=== PATIENT | male | born 1970 | race African-American/Black ===

== ENCOUNTER 2016-12-22 22:08 | Emergency (ER) | payer SELFPAY ==
[2016-12-22 22:24] VITALS: BP 160/109; PULSE 79; TEMP 98.6; BMI 26.4
[2016-12-23] MEDS ORDERED: SULFAMETHOXAZOLE/TRIMETHOPRIM 800MG/160MG D.S. TABLET PO ONE (00:36)
[2016-12-23] MEDS ORDERED: IBUPROFEN 400 MG TABLET (FP) PO ONE ×2 (00:36→00:51)
--- NOTE | 2016-12-23 00:36 | PDOC ---
History of Present Illness - General History Source: Patient Exam Limitations: No Limitations - History of Present Illness Initial Comments: 12/23/16 00:40 The patient is a 46 year old male with significant past medical history of hypertension who presents to the ED for 2 weeks of cough. Patient reports his cough is sometimes productive with yellow sputum. He also reports he endorses chest pain when he coughs. Denies lightheadedness, diaphoresis, SOB, jaw pain, shoulder pain, arm pain, leg swelling, nausea, or vomiting. States he is a former smoker and quit 2 weeks ago. The patient denies fever, chills, abdominal pain, and diarrhea. Allergies: NKDA Social History: Former smoker (quit 2 weeks ago). No alcohol or drug use reported. Past Surgical History: catheterization PCP: n/a <Lorelei Jansen - Last Filed: 12/23/16 00:40> - General History Source: Patient <Daron Rosado - Last Filed: 12/23/16 01:39> - General Chief Complaint: Pain Stated Complaint: CHEST PAIN Time Seen by Provider: 12/23/16 00:31 Past History <Lorelei Jansen - Last Filed: 12/23/16 00:40> - Past Medical History HTN: Yes - Surgical History Cardiac Surgery: Yes (Catheterization w/balloon) - Psycho/Social/Smoking Cessation Hx Suicidal Ideation: No Smoking History: Never smoked Have you smoked in the past 12 months: No Information on smoking cessation initiated: No Hx Alcohol Use: No Drug/Substance Use Hx: No Substance Use Type: None <Daron Rosado - Last Filed: 12/23/16 01:39> - Past Medical History Allergies/Adverse Reactions: Allergies Allergy/AdvReac Type Severity Reaction Status Date / Time No Known Allergies Allergy Verified 12/22/16 22:21 Home Medications: Ambulatory Orders Ibuprofen 800 mg PO TID #30 tablet 12/23/16 Promethazine/Phenyleph/Codeine [Phenergan VC+Codeine Syrup] 5 ml PO TID #30 ml MDD 4 12/23/16 Sulfamethoxazole/Trimethoprim [Bactrim *Ds*] 1 tab PO BID #20 tablet 12/23/16 Review of Systems - Review of Systems Able to Perform ROS?: Yes Comments:: 12/23/16 00:41 CONSTITUTIONAL: Absent: fever, no chills, no fatigue EYES: Absent: visual changes ENT: Absent: ear pain, no sore throat CARDIOVASCULAR: +chest pain Absent: no palpitations RESPIRATORY: +cough Absent: no SOB GI: Absent: abdominal pain, no nausea, no vomiting, no constipation, no diarrhea GENITOURINARY: Absent: dysuria, no frequency, no hematuria MUSCULOSKELETAL: Absent: back pain, no arthralgia, no myalgia SKIN: Absent: rash NEURO: Absent: headache <Lorelei Jansen - Last Filed: 12/23/16 00:40> *Physical Exam - Vital Signs Last Vital Signs Temp Pulse Resp BP Pulse Ox 98.6 F 79 20 160/109 97 12/22/16 22:22 12/22/16 22:22 12/22/16 22:22 12/22/16 22:22 12/22/16 22:22 - Physical Exam Comments: 12/23/16 00:41 GENERAL: Well-appearing, well-nourished. No apparent distress. HEENT: Normocephalic, atraumatic. PERRL, EOM intact. CARDIOVASCULAR: Normal S1, S2. Regular rate and rhythm. PULMONARY: No evidence of respiratory distress. Lungs clear to auscultation bilaterally. No wheezing, rales or rhonchi. No conversational dyspnea. No retractions. ABDOMEN: Soft, non-distended, non-tender. EXTREMITIES: Normal ROM in all four extremities. No gross deformities. SKIN: Warm, dry. No rash NEUROLOGICAL: No focal neurological deficits. <Lorelei Jansen - Last Filed: 12/23/16 00:40> - Vital Signs Last Vital Signs Temp Pulse Resp BP Pulse Ox 98.6 F 79 20 160/109 97 12/22/16 22:22 12/22/16 22:22 12/22/16 22:22 12/22/16 22:22 12/22/16 22:22 <Daron Rosado - Last Filed: 12/23/16 01:39> Medical Decision Making - Medical Decision Making 12/23/16 00:49 Dr. Rosado: The scribe's documentation has been prepared under my direction and personally reviewed by me in its entirery. I confirm that the note above accurately reflects all work, treatment, procedures, and medical decision making performed by me. <Daron Rosado - Last Filed: 12/23/16 01:39> *DC/Admit/Observation/Transfer - Attestations Scribe Attestion: 12/23/16 00:41 Documentation prepared by Lorelei Jansen, acting as medical surgical tech for Daron Rosado DO. <Lorelei Jansen - Last Filed: 12/23/16 00:40> - Discharge Dispostion Admit: No <Daron Rosado - Last Filed: 12/23/16 01:39> Diagnosis at time of Disposition: Bronchitis - Discharge Dispostion Disposition: HOME Condition at time of disposition: Stable - Prescriptions Prescriptions: Sulfamethoxazole/Trimethoprim [Bactrim *Ds*] 1 tab PO BID #20 tablet Ibuprofen 800 mg PO TID #30 tablet Promethazine/Phenyleph/Codeine [Phenergan VC+Codeine Syrup] 5 ml PO TID #30 ml MDD 4 - Patient Instructions Printed Discharge Instructions: DI for Acute Bronchitis
[2016-12-23] MEDS ORDERED: SULFAMETHOXAZOLE/TRIMETHOPRIM 800MG/160MG D.S. TABLET ONE (00:51)
--- NOTE | 2016-12-23 16:19 | EKG ---
Test Reason : Blood Pressure : / mmHG Vent. Rate : 070 BPM Atrial Rate : 070 BPM P-R Int : 138 ms QRS Dur : 086 ms QT Int : 428 ms P-R-T Axes : 015 052 224 degrees QTc Int : 462 ms POOR DATA QUALITY, INTERPRETATION MAY BE ADVERSELY AFFECTED NORMAL SINUS RHYTHM LEFT VENTRICULAR HYPERTROPHY WITH REPOLARIZATION ABNORMALITY ABNORMAL ECG NO PREVIOUS ECGS AVAILABLE Confirmed by JUN ZUÑIGA, JACQUIE ([id number]) on 12/23/2016 4:18:59 PM Referred By: Confirmed By:JACQUIE BARAHONA MD
== END 2016-12-23 01:08 | disposition home or self-care (01) ==
LOC: JER 22:08
DX: J40 Bronchitis, not specified as acute or chronic (principal); I25.10 Atherosclerotic heart disease of native coronary artery without angina pectoris; I10 Essential (primary) hypertension; Z95.5 Presence of coronary angioplasty implant and graft
CPT/HCPCS: 93005; 93010; 99282-25

== ENCOUNTER 2017-05-05 23:03 | Emergency (ER) | payer SELFPAY ==
[2017-05-05 23:25] VITALS: PULSE 97; TEMP 99.3; BMI 27.7
--- NOTE | 2017-05-06 00:39 | PDOC ---
Attending Attestation - HPI HPI: 05/06/17 01:20 46 yo M with history of hypertension, s/p stent, cigarette smoking, complaining of 3 days of sore throat, nonproductive cough, and headache. No chest pain or shortness of breath. - Physicial Exam PE: 05/06/17 01:21 Constitutional: Awake, alert, oriented. No acute distress. Head: Normocephalic. Atraumatic Eyes: PERRL. EOMI. Conjunctivae are not pale. ENT: Mucous membranes are moist and intact. Posterior pharynx without exudates or erythema. Uvula midline. Neck: Supple. Full ROM. No lymphadenopathy. Cardiovascular: Regular rate. Regular rhythm. S1, S2 regular. Distal pulses are 2+ and symmetric. Pulmonary/Chest: No evidence of respiratory distress. Clear to auscultation bilaterally No wheezing, rales or rhonchi. Abdominal: Soft and non-distended. There is no tenderness. No rebound, guarding or rigidity. No organomegaly. No palpable masses. Good bowel sounds. Back: No CVA tenderness. Musculoskeletal: No edema. No cyanosis. No clubbing. Full range of motion in all extremities. Nocalf tenderness. Radial/pedal pulses are intact and 2+ bilaterally Skin: Skin is warm and dry. No petechiae. No purpura. Neurological: Alert and oriented to person, place, and time. Cranial nerves II -XII are grossly intact. Normal speech. Strength is grossly symmetric. No sensory deficits. Psychiatric: Good eye contact. Normal interaction, affect and behavior. - Medical Decision Making 05/06/17 01:23 Documentation prepared by Gillian Box, acting as medical cash poster for Daron Rosado MD. <Gillian Box - Last Filed: 05/06/17 01:20> - Resident Resident Name: Ivan Samuel - ED Attending Attestation I have performed the following: I have examined & evaluated the patient, The case was reviewed & discussed with the resident, I agree w/resident's findings & plan, Exceptions are as noted - Medical Decision Making 05/06/17 01:23 Pt treated and released. Medication for HTN sent to pharmacy <Daron Rosado - Last Filed: 05/06/17 01:24>
--- NOTE | 2017-05-06 01:05 | PDOC ---
History of Present Illness - General Chief Complaint: Sore Throat Stated Complaint: PAIN/hypertension run out of meds 3 weeks ago Time Seen by Provider: 05/05/17 23:53 History Source: Patient Exam Limitations: No Limitations - History of Present Illness Initial Comments: 05/06/17 00:58 46M with pmh of balloon stent 3 years ago and untreated htn presents with sore throat for the past 3 days. Some cough and headaches. No runny nose, congestion, chest pain, sob, rash. Patient states hes not very involved in his health, lack of interest but tries to do better. Stopped smoking cigars 3 days ago. denies drug use. 05/06/17 01:06 Past History - Past Medical History Allergies/Adverse Reactions: Allergies Allergy/AdvReac Type Severity Reaction Status Date / Time No Known Allergies Allergy Verified 05/05/17 23:16 Home Medications: Ambulatory Orders Diltiazem HCl [Diltiazem 24Hr ER] 180 mg PO DAILY 30 Days #30 cap.er.24h Lisinopril [Prinivil] 10 mg PO DAILY #30 tablet 05/06/17 COPD: No HTN: Yes (non compliant) - Surgical History Cardiac Surgery: Yes (Catheterization w/balloon) - Suicide/Smoking/Psychosocial Hx Smoking History: Former smoker Have you smoked in the past 12 months: Yes If you are a former smoker, when did you quit?: 05/02/17 Information on smoking cessation initiated: No Hx Alcohol Use: No Drug/Substance Use Hx: No Substance Use Type: None Review of Systems - Review of Systems Able to Perform ROS?: Yes Is the patient limited Croatian proficient: No Constitutional: No: Symptoms Reported HEENTM: Yes: See HPI Respiratory: Yes: See HPI Cardiac (ROS): No: Symptoms Reported ABD/GI: No: Symptoms Reported : No: Symptoms Reported Musculoskeletal: No: Symptoms Reported Integumentary: No: Symptoms Reported Neurological: No: Symptoms reported All Other Systems: Reviewed and Negative *Physical Exam - Vital Signs Last Vital Signs Temp Pulse Resp BP Pulse Ox 99.3 F 97 H 16 165/115 100 05/05/17 23:16 05/05/17 23:16 05/05/17 23:16 05/05/17 23:16 05/05/17 23:16 - Physical Exam General Appearance: Yes: Nourished, Appropriately Dressed. No: Apparent Distress HEENT: positive: EOMI, ELIZABETH, Pharyngeal Erythema, Tonsillar Erythema. negative : Muffled/Hoarse voice, Tonsillar Exudate, Rhinorrhea, Sinus Tenderness Neck: positive: Lymphadenopathy (R), Lymphadenopathy (L). negative: Tender Respiratory/Chest: positive: Lungs Clear, Normal Breath Sounds. negative: Chest Tender, Respiratory Distress Cardiovascular: positive: Regular Rhythm, Regular Rate, S1, S2 Gastrointestinal/Abdominal: positive: Normal Bowel Sounds, Flat, Soft. negative : Tender Musculoskeletal: positive: Normal Inspection. negative: CVA Tenderness Extremity: positive: Normal Capillary Refill, Normal Inspection, Normal Range of Motion Integumentary: positive: Normal Color, Dry, Warm Neurologic: positive: Fully Oriented, Alert, Normal Mood/Affect, Normal Response Medical Decision Making - Medical Decision Making 05/06/17 01:07 46 with HTN and sore throat. Will send for rapid strep. Wrote Rx for Diltiazem and Lisinopril. 05/06/17 01:17 Rapid strep negative Ok to discharge *DC/Admit/Observation/Transfer Diagnosis at time of Disposition: Acute viral pharyngitis - Discharge Dispostion Disposition: HOME Condition at time of disposition: Stable Admit: No - Prescriptions Prescriptions: Diltiazem HCl [Diltiazem 24Hr ER] 180 mg PO DAILY 30 Days #30 cap.er.24h Lisinopril [Prinivil] 10 mg PO DAILY #30 tablet - Referrals Referrals: Carlin Langston MD [Staff Physician] - Mihai Box MD [Staff Physician] - - Patient Instructions Printed Discharge Instructions: Viral Pharyngitis, Treatments for High Blood Pressure: More Than Just Taking a Pill, Recommendations to Help Prevent High Blood Pressure, High Blood Pressure - Post Discharge Activity
[2017-05-06] MEDS ORDERED: LISINOPRIL 10 MG TABLET (FP) PO ONE (01:46)
[2017-05-06] MEDS ORDERED: LISINOPRIL 20 MG TABLET (FP) ONE (01:54)
[2017-05-06] MEDS ORDERED: DEXAMETHASONE LIQUID 0.5 MG/5 ML 240 ML BULK BOTTLE PO ONE (01:54)
[2017-05-06] MEDS ORDERED: DEXAMETHASONE SOD PHOSPHATE 10 MG/1 ML VIAL ONE (01:56)
[2017-05-06] MEDS ORDERED: PHENOL 177 ML SPRAY BOTTLE MM PRN (01:58)
[2017-05-06 02:00] VITALS: BP 166/108
[2017-05-06] MEDS ORDERED: FLUTICASONE PROP 0.05% 16 GM NASAL SPRAY NS ONE (02:24)
== END 2017-05-06 02:50 | disposition home or self-care (01) ==
LOC: JER 23:03
DX: J02.9 Acute pharyngitis, unspecified (principal); B97.89 Other viral agents as the cause of diseases classified elsewhere; Z87.891 Personal history of nicotine dependence; Z95.5 Presence of coronary angioplasty implant and graft; I10 Essential (primary) hypertension
CPT/HCPCS: 87070; 87077; 87430; 99282-25